=== PATIENT | female | born 1970 | race Caucasian/White ===

== ENCOUNTER → 2017-06-14 09:42 | Outpatient (CLI) | payer MEDICAID | END | disposition home or self-care (01) | LOC: D.MAMMO 05-26 13:00 | DX: Z12.31 Encounter for screening mammogram for malignant neoplasm of breast (principal) ==

== ENCOUNTER 2018-06-25 22:17 | Inpatient (IN) | payer MEDICAID ==
[~2018-06-25] VITALS: Ht 157.5 cm; Wt 112.7 kg
--- NOTE | ~2018-06-25 | EC ---
PATIENT:GAEL EDGE DATE OF SERVICE: 06/26/18 SEX: F MEDICAL RECORD: [id number] DATE OF : 74 LOCATION:D.M2 D.211 AGE OF PATIENT: 47 ADMISSION DATE: 06/26/18 REFERRING PHYSICIAN: INTERPRETING PHYSICIAN: ROSIBEL GONZALEZ MD ECHOCARDIOGRAM REPORT ECHO CHARGES 4 ECHO COMPLETE Date: 06/26/18 CLINICAL DIAGNOSIS: PE ECHOCARDIOGRAPHIC MEASUREMENTS (adult normal given) AC root (d.<3.7cm) 3.0 cm LV Septum d (<1.2 cm> 1.1 cm Valve Excursion 1.7 cm LV Septum (systole) 1.4 cm Left Atria (s.<4.0cm> 3.1 cm LVPW d(<1.2cm) 1.0 cm RV (d.<2.3cm) 3.9 cm LVPW (sytole) 1.4 cm LV diastole(<5.6CM) 4.0 cm MV E-F(>70mm/sec) cm LV systole 2.1 cm LVOT Diameter 1.7 cm MV exc.(>10mm) cm Est.ejection fraction (50-75%) % DOPPLER: LVIT cm/sec A 58.0 cm/sec E 43.0 cm/sec LA cm/sec RVSP 52.0 mmHg LVOT 95.0 cm/sec AOP1/2T m/s Asc. Ao 132 cm/sec RVOT 44.0 cm/sec RA cm/sec PA 54.0 cm/sec AV Gradient Peak 7.0 mmHg AV Mean 3.1 mmHg AV Area 1.7 cm MV Gradient Peak 2.2 mmHg MV Mean 1.0 mmHg MV Area cm COMMENTS: [employer] Attendant: Callum CASTELLANOSOE [employer] Feeder: 1 Dr. Gonzalez TAPE# PACS Pericardial Effusion N DATE OF SERVICE: 06/26/2018 FINDINGS: 1. Left ventricular chamber size is within normal limits. Left ventricular systolic function is mildly depressed. Overall ejection fraction is estimated at 40%. 2. Left atrium is within normal limits at 3.1 cm. Right atrium and right ventricle chamber sizes are mildly dilated. 3. Valvular structures have normal structure and motion. 4. Doppler interrogation reveals moderate tricuspid regurgitation. No other ECHOCARDIOGRAM REPORT [id number] GAEL EDGE valvular insufficiency or stenosis; however, pulmonary systolic pressure is elevated, estimated at 52 mmHg. 5. No evidence of pericardial effusion or left ventricular thrombus. TRANSINT:[id number] Voice Confirmation ID: [id number] DOCUMENT ID: [id number] ROSIBEL GONZALEZ MD at 1729 CC: [id number] DICTATION DATE: 06/26/18 1545 EFFICIENCY ANALYST: 06/26/18 1630 ADM IN [place] [id number] [place] [id number]
--- NOTE | ~2018-06-25 | CN ---
PATIENT NAME:GAEL EDGE MEDICAL RECORD: [id number] : 74 LOCATION:RUBÉND.2306 ADMIT DATE: 06/26/18 ACCOUNT: [id number] CONSULTING PHYSICIAN: ULYSSES KIM MD REFERRING PHYSICIAN: RASHI GUAMAN MD DATE OF CONSULTATION: 06/26/2018 CONSULT REQUESTING PHYSICIAN: Jose R Camacho MD REASON FOR CONSULTATION: Bilateral PE, dyspnea. HISTORY OF PRESENT ILLNESS: Ms. Edge is a 47-year-old female who is moving from [place] to [place]. According to her, for the last 2-3 days, she has worsening shortness of breath. She was also having chest pain when she was taking deep breath. The patient was seen in the ER. CTA showed multiple pulmonary embolisms. Denies any recent travel. She is pretty active. She is not on any oral contraceptive. REVIEW OF THE SYSTEMS: Mainly in the history of present illness. PAST MEDICAL HISTORY: 1. Epilepsy. 2. Obesity. 3. History of cholecystitis. PAST SURGICAL HISTORY: Cholecystectomy. ALLERGIES: There is no known drug allergy. MEDICATIONS: She is on carbamazepine for seizure. PERSONAL AND SOCIAL HISTORY: The patient is nonsmoker and nondrinker. FAMILY HISTORY: Significant for her mother has PE and her maternal uncle has PE. PHYSICAL EXAMINATION: GENERAL: Now, the patient is lying comfortably in bed. She is not in acute distress. VITAL SIGNS: The blood pressure is 100/78, pulse is 95, respiration is 18, temperature is 98.6, and SpO2 is 95% on 2 liters nasal cannula. HEENT: Conjunctivae are pink. Sclerae are not icteric. NECK: Neck is supple. No JVD. CHEST: Chest excursion is equal on both sides. There is no wheeze and no rales. HEART: Rate and rhythm regular. Normal heart sounds. There is a loud P2 component of the heart sound. EXTREMITIES: No cyanosis, no clubbing, and no pedal edema. ABDOMEN: Abdomen is soft. Bowel sounds present. No hepatosplenomegaly. RECTAL: Deferred. CENTRAL NERVOUS SYSTEM: The patient is awake and alert. There is no obvious cranial nerve abnormality. The gait was not tested. LABORATORY DATA: CBC; WBC 12.7, hemoglobin 15, hematocrit 44.3, and platelet count 209. Chemistry; sodium is 142, potassium 3.9, BUN is 13, creatinine 0.9. CONSULT REPORT [id number] GAEL EDGE JENNIFER IMPRESSION: 1. Acute hypoxic respiratory failure. 2. Bilateral multiple pulmonary embolism. 3. Dyspnea on exertion. 4. Seizure disorder. 5. Leukocytosis. 6. Possible pulmonary hypertension with right ventricular strain pattern on CTA scan of the chest. RECOMMENDATION: 1. Start Lovenox 1 mg/kg b.i.d. We will hold on oral agents for 3-4 days. 2. We will check her for coagulopathy. Check factor V Leiden. 3. Check the cardiac echo. Continue home medication. Dr. Camacho, thank you for involving me in the care of Ms. Brennan. The critical care time was 45 minutes. TRANSINT:[id number] Voice Confirmation ID: [id number] DOCUMENT ID: [id number] ULYSSES KIM MD CC: [id number] DICTATION DATE: 06/26/181422 HEALTH COMPANION: 06/26/18 1442 ADM IN [facility] [address] [place] [address]
[2018-06-25] MEDS ORDERED: EPITOL200 MG (22:22)
[2018-06-25] MEDS ORDERED: ZONEGRAN100 MG PO (22:22)
[2018-06-25 22:34] VITALS: BP 114/81
[2018-06-25 23:02] LABS: BASOPHILS 0.2 % (0-2); EOSINOPHILS 0.2 % (0-7); HEMATOCRIT 44.3 % (36.0-48.0); IMMATURE GRANULOCYTES 0.1 % (0-5); MCH 29.3 pg (26.0-34.0); MCHC 33.9 g/dL (31.0-37.0); MCV 86.5 fL (80.0-100.0); MONOCYTES 6.9 % (2-11); NEUTROPHILS 78.6 % (40-80); PLATELET COUNT 209 10x3/uL (130-400); RBC 5.12 10x6/uL (4.00-5.40); RDW 13.8 % (11.5-14.5); WBC 12.7 10x3/uL (4.8-10.8)
[2018-06-25 23:14] LABS: INR 1.09 (0.85-1.17); PROTIME 13.7 SECONDS (11.6-15.0)
[2018-06-25 23:15] LABS: APTT 28.2 SECONDS (22.8-39.4)
[2018-06-25 23:20] LABS: ALBUMIN 3.1 g/dL (3.4-5.0); ALKALINE PHOSPHATASE 137 U/L (46-116); ALT (SGPT) 31 U/L (10-68); BILIRUBIN - TOTAL 0.19 mg/dL (0.2-1.3); CALC OSMOLALITY 286 mosm/kg (275-300); CALCIUM 8.6 mg/dL (8.5-10.1); CARBON DIOXIDE 23.3 mmol/L (21.0-32.0); CHLORIDE - SERUM 103 mmol/L (98-107); CREATININE - SERUM 0.9 mg/dL (0.6-1.3); GLUCOSE 163 mg/dL (74-106); POTASSIUM - SERUM 3.9 mmol/L (3.5-5.1); PROTEIN - SERUM 7.6 g/dL (6.4-8.2); SODIUM 142 mmol/L (136-145); UREA NITROGEN 13 mg/dL (7-18); eGFR NON AFRICAN AMERICAN 72 mL/min (90-120)
[2018-06-25 23:23] LABS: D-DIMER-QUANTITATIVE 12.8 ug/mLFEU (0.20-0.54)
[2018-06-25 23:33] VITALS: BP 108/81
[2018-06-25 23:35] LABS: CKMB 2.6 U/L (0.0-3.6); CREATINE KINASE 49 UL (21-215); PRO BNP 1949 pg/mL (0-125)
[2018-06-25 23:38] LABS: TROPONIN-I 0.521 ng/mL (0.000-0.060)
[2018-06-26] VITALS (27 sets, daily range): BP systolic 92–140; BP diastolic 60–101; Ht 157.5 cm; Wt 112.7 kg
[2018-06-26 07:05] LABS: BASOPHILS 0.2 % (0-2); EOSINOPHILS 0.2 % (0-7); HEMATOCRIT 42.4 % (36.0-48.0); HEMOGLOBIN 14.3 g/dL (12-16); IMMATURE GRANULOCYTES 0.2 % (0-5); LYMPHOCYTES 33.6 % (15-50); MCH 28.9 pg (26.0-34.0); MCHC 33.7 g/dL (31.0-37.0); MCV 85.7 fL (80.0-100.0); MEAN PLATELET VOLUME 10.8 fL (7.4-10.4); MONOCYTES 8.3 % (2-11); NEUTROPHILS 57.5 % (40-80); PLATELET COUNT 219 10x3/uL (130-400); RBC 4.95 10x6/uL (4.00-5.40)
[2018-06-26 07:40] LABS: CALCIUM 8.8 mg/dL (8.5-10.1); CARBON DIOXIDE 23.7 mmol/L (21.0-32.0); CHLORIDE - SERUM 104 mmol/L (98-107); CKMB 2.4 U/L (0.0-3.6); CREATINE KINASE 40 UL (21-215); CREATININE - SERUM 0.7 mg/dL (0.6-1.3); POTASSIUM - SERUM 3.6 mmol/L (3.5-5.1); SODIUM 143 mmol/L (136-145); UREA NITROGEN 10 mg/dL (7-18); eGFR NON AFRICAN AMERICAN > 90 mL/min (90-120)
[2018-06-26 07:44] LABS: CALC OSMOLALITY 284 mosm/kg (275-300); GLUCOSE 113 mg/dL (74-106)
[2018-06-26 07:47] LABS: TROPONIN-I 0.316 ng/mL (0.000-0.060)
[2018-06-27] VITALS (13 sets, daily range): BP systolic 94–127; BP diastolic 77–92
[2018-06-27 04:30] LABS: BASOPHILS 0.5 % (0-2); EOSINOPHILS 0.3 % (0-7); HEMATOCRIT 41.6 % (36.0-48.0); HEMOGLOBIN 13.8 g/dL (12-16); IMMATURE GRANULOCYTES 0.1 % (0-5); LYMPHOCYTES 39.4 % (15-50); MCH 28.9 pg (26.0-34.0); MCHC 33.2 g/dL (31.0-37.0); MEAN PLATELET VOLUME 11.4 fL (7.4-10.4); MONOCYTES 7.2 % (2-11); NEUTROPHILS 52.5 % (40-80); PLATELET COUNT 192 10x3/uL (130-400); RBC 4.78 10x6/uL (4.00-5.40); RDW 13.9 % (11.5-14.5); WBC 8.6 10x3/uL (4.8-10.8)
[2018-06-27 04:58] LABS: ANION GAP 10.6 mmol/L (8-16); CALCIUM 8.3 mg/dL (8.5-10.1); CARBON DIOXIDE 27.1 mmol/L (21.0-32.0); MAGNESIUM - SERUM 1.7 mg/dL (1.8-2.4); POTASSIUM - SERUM 3.7 mmol/L (3.5-5.1); THYROID STIMULATING HORMONE 3.17 uIU/mL (0.36-3.74)
[2018-06-27 05:02] LABS: CREATININE - SERUM 0.9 mg/dL (0.6-1.3)
[2018-06-27 11:28] LABS: ACLA - IGG AB <9 GPL U/mL (0-14); ACLA - IGM AB 16 MPL U/mL (0-12)
[2018-06-28] VITALS: BP 122/74
[2018-06-28 04:00] VITALS: BP 122/83
[2018-06-28 06:08] LABS: BASOPHILS 0.4 % (0-2); EOSINOPHILS 0.8 % (0-7); HEMATOCRIT 40.3 % (36.0-48.0); HEMOGLOBIN 13.3 g/dL (12-16); IMMATURE GRANULOCYTES 0.1 % (0-5); LYMPHOCYTES 38.8 % (15-50); MCH 28.7 pg (26.0-34.0); MEAN PLATELET VOLUME 11.4 fL (7.4-10.4); MONOCYTES 8.3 % (2-11); NEUTROPHILS 51.6 % (40-80); PLATELET COUNT 187 10x3/uL (130-400); RBC 4.63 10x6/uL (4.00-5.40); RDW 14.1 % (11.5-14.5); WBC 7.7 10x3/uL (4.8-10.8)
[2018-06-28 06:40] LABS: ALBUMIN 2.6 g/dL (3.4-5.0); ALKALINE PHOSPHATASE 115 U/L (46-116); ALT (SGPT) 42 U/L (10-68); BILIRUBIN - TOTAL 0.27 mg/dL (0.2-1.3); CALC OSMOLALITY 283 mosm/kg (275-300); CALCIUM 8.4 mg/dL (8.5-10.1); CARBON DIOXIDE 25.9 mmol/L (21.0-32.0); CHLORIDE - SERUM 107 mmol/L (98-107); CREATININE - SERUM 0.8 mg/dL (0.6-1.3); GLUCOSE 88 mg/dL (74-106); MAGNESIUM - SERUM 1.8 mg/dL (1.8-2.4); POTASSIUM - SERUM 3.9 mmol/L (3.5-5.1); PROTEIN - SERUM 6.5 g/dL (6.4-8.2); SODIUM 143 mmol/L (136-145); UREA NITROGEN 13 mg/dL (7-18); eGFR NON AFRICAN AMERICAN 82 mL/min (90-120)
[2018-06-28 07:44] VITALS: BP 157/84
[2018-06-28 09:19] LABS: FOLATE (FOLIC ACID) - SERUM 5.5 ng/mL (>3.0)
[2018-06-28 10:58] VITALS: BP 114/81
[2018-06-28 11:23] LABS: PROTEIN S - FREE 93 % (57-157); PROTEIN S - FUNCTIONAL 69 % (63-140); PROTEIN S - TOTAL 137 % (60-150)
[2018-06-28 11:23] LABS: ALPHA FETOPROTEIN -(TUMOR MRK) 1.1 ng/mL (0.0-8.3); CEA 2.4 ng/mL (0.0-4.7)
[2018-06-28 15:28] LABS: MITOCHONDRIAL ANTIBODY 3.4 Units (0.0-20.0)
[2018-06-28 15:38] VITALS: BP 152/77
[2018-06-28 16:15] LABS: CA 27-29 38.2 U/mL (0.0-38.6)
[2018-06-28 20:00] VITALS: BP 132/82
[2018-06-29 04:00] VITALS: BP 133/77
[2018-06-29 06:15] LABS: HEXAGONAL PHASE PHOS 16 sec (0-11); LUPUS - INTERPRETATION Comment: (()); LUPUS - THROMBIN TIME 14.8 sec (0.0-23.0); LUPUS - dRVVT 46.5 sec (0.0-47.0); PTT-LA 52.9 sec (0.0-51.9); PTT-LA MIX 50.1 sec (0.0-48.9)
[2018-06-29 06:17] LABS: BASOPHILS 0.2 % (0-2); EOSINOPHILS 0.9 % (0-7); HEMATOCRIT 40.6 % (36.0-48.0); HEMOGLOBIN 13.3 g/dL (12-16); IMMATURE GRANULOCYTES 0.1 % (0-5); LYMPHOCYTES 37.1 % (15-50); MCH 28.5 pg (26.0-34.0); MCHC 32.8 g/dL (31.0-37.0); MCV 86.9 fL (80.0-100.0); MEAN PLATELET VOLUME 11.8 fL (7.4-10.4); NEUTROPHILS 54.7 % (40-80); PLATELET COUNT 202 10x3/uL (130-400); RBC 4.67 10x6/uL (4.00-5.40); RDW 14.1 % (11.5-14.5); WBC 8.1 10x3/uL (4.8-10.8)
[2018-06-29 06:34] LABS: ALBUMIN 2.7 g/dL (3.4-5.0); ALKALINE PHOSPHATASE 123 U/L (46-116); ALT (SGPT) 46 U/L (10-68); BILIRUBIN - TOTAL 0.28 mg/dL (0.2-1.3); CALC OSMOLALITY 280 mosm/kg (275-300); CALCIUM 8.5 mg/dL (8.5-10.1); CHLORIDE - SERUM 107 mmol/L (98-107); CREATININE - SERUM 0.7 mg/dL (0.6-1.3); GLUCOSE 90 mg/dL (74-106); MAGNESIUM - SERUM 1.8 mg/dL (1.8-2.4); POTASSIUM - SERUM 3.7 mmol/L (3.5-5.1); PROTEIN - SERUM 6.5 g/dL (6.4-8.2); SODIUM 141 mmol/L (136-145); UREA NITROGEN 12 mg/dL (7-18); eGFR NON AFRICAN AMERICAN > 90 mL/min (90-120)
[2018-06-29 07:44] VITALS: BP 120/83
[2018-06-29 11:16] VITALS: BP 126/78
[2018-06-29 15:33] VITALS: BP 143/80
[2018-06-29 16:23] LABS: PROTEIN C - ANTIGEN 110 % (60-150); PROTEIN C - FUNCTIONAL 137 % (73-180)
[2018-06-29 21:38] VITALS: BP 130/75
[2018-06-30 06:20] LABS: BASOPHILS 0.1 % (0-2); EOSINOPHILS 0.7 % (0-7); HEMATOCRIT 40.2 % (36.0-48.0); HEMOGLOBIN 13.3 g/dL (12-16); IMMATURE GRANULOCYTES 0.1 % (0-5); LYMPHOCYTES 28.4 % (15-50); MCHC 33.1 g/dL (31.0-37.0); MCV 87.6 fL (80.0-100.0); MEAN PLATELET VOLUME 11.5 fL (7.4-10.4); NEUTROPHILS 62.7 % (40-80); PLATELET COUNT 195 10x3/uL (130-400); RBC 4.59 10x6/uL (4.00-5.40); RDW 14.1 % (11.5-14.5); WBC 7.4 10x3/uL (4.8-10.8)
[2018-06-30 06:28] VITALS: BP 120/76
[2018-06-30 06:50] LABS: ALBUMIN 2.7 g/dL (3.4-5.0); ALKALINE PHOSPHATASE 125 U/L (46-116); BILIRUBIN - TOTAL 0.22 mg/dL (0.2-1.3); CALC OSMOLALITY 279 mosm/kg (275-300); CALCIUM 8.5 mg/dL (8.5-10.1); CARBON DIOXIDE 26.8 mmol/L (21.0-32.0); CHLORIDE - SERUM 106 mmol/L (98-107); CREATININE - SERUM 0.8 mg/dL (0.6-1.3); GLUCOSE 90 mg/dL (74-106); MAGNESIUM - SERUM 1.9 mg/dL (1.8-2.4); POTASSIUM - SERUM 4.1 mmol/L (3.5-5.1); PROTEIN - SERUM 6.7 g/dL (6.4-8.2); SODIUM 140 mmol/L (136-145); UREA NITROGEN 15 mg/dL (7-18); eGFR NON AFRICAN AMERICAN 82 mL/min (90-120)
[2018-06-30 06:51] LABS: ALT (SGPT) 66 U/L (10-68)
[2018-06-30] MEDS ORDERED: ELIQUIS5 MG PO ×3 (10:34→12:06)
== END 2018-06-30 13:19 | disposition home or self-care (01) | DRG 175 ==
LOC: D.ER 22:17 → D.ICU 06-26 02:30 → D.M2 06-27 14:39
PROVIDERS: Family Medicine; Internal Medicine Hematology & Oncology; Internal Medicine Pulmonary Disease
DX: I26.02 Saddle embolus of pulmonary artery with acute cor pulmonale (principal); J96.01 Acute respiratory failure with hypoxia; Z68.42 Body mass index [BMI] 45.0-49.9, adult; G40.909 Epilepsy, unspecified, not intractable, without status epilepticus; E66.9 Obesity, unspecified